=== PATIENT | male | born 1980 | race Caucasian/White ===

== ENCOUNTER 2018-10-21 19:39 | Observation (INO) | payer OTHER ==
[~2018-10-21] VITALS: Ht 170.2 cm; Wt 90.7 kg
[2018-10-21] MEDS ORDERED: NS(*) 0.9% 1000 ML BAG 1,000 ML IV ONE (19:55)
[2018-10-21 20:07] LABS: PLATELET COUNT, AUTOMATED 193 K/uL (150-450)
--- NOTE | 2018-10-21 20:09 | ER Report ---
History and Physical Time Seen By MD: 19:48 HPI/ROS CHIEF COMPLAINT: fall off skateboard, seizure, altered level of consciousness. HISTORY OF PRESENT ILLNESS: This is a 38 year old male. He was brought to the ER by EMS after a fall from a skateboard. He had a helmet on. Witnessed by others, reported seizure activity for about 5 minutes. EMS reported he was only responsive to painful stimuli. Gave Ativan 2mg IV for the seizure which then sto pped. He also had a blood sugar of 60 and was given 1/2 amp of D50. Backboard and cervical collar in place. Unknown history otherwise. Unknown if fall occurred first or seizure. Unknown if seizure history. No obvious injuries on their evaluation other than abrasions. REVIEW OF SYSTEMS: Unable to obtain Allergies: Coded Allergies: No Known Drug Allergies (Verified , 08/23/09) Home Meds Reported Medications Lactobacillus Acidophilus (ACIDOPHILUS) Unknown Strength Capsule, PO PRN, CAPSULE 03/02/18 Ibuprofen (ADVIL) Unknown Strength Tablet, PO PRN 03/02/18 [No Current Meds] No Conflict Check, 0 Refills 09/05/09 Reviewed Nurses Notes: Yes Smoking Status: Never Smoker Constitutional Vital Sign - Last 24 Hours 10/21/18 10/21/18 10/21/18 10/21/18 19:51 19:55 20:03 20:15 Temp 97.9 Pulse 93 91 Resp 16 24 B/P (MAP) 132/82 133/82 (99) 137/79 (98) Pulse Ox 95 94 O2 Delivery Room Air 10/21/18 10/21/18 10/21/18 10/21/18 20:50 21:00 21:15 21:30 Pulse 97 Resp 26 B/P (MAP) 143/95 (111) 129/84 (99) 107/72 (84) Pulse Ox 95 Physical Exam General Appearance: The patient is very sedated. He is snoring. He does open his eyes briefly and look at me when calling his name. Falls asleep quickly after this. Only a few mumbled verbal responses that sound like yes or no to a few questions, mostly without response to verbal. He does respond to some pa inful stimuli. Able to mumble a little when palpating his back on log roll evaluation. Eyes: Pupils are equal, round. Reactive to light. No pallor, injection or icterus. ENT: Mucous membranes are moist. Normal oral mucosa. Posterior oropharynx is difficult to see completely, but appears normal. Normal nasal mucosa. Normal tympanic membranes and canals. Neck: Supple without apparent tenderness. Midline trachea, no swelling. No apparent midline cervical spine pain. Respiratory: Breathing easily and unlabored. Lungs are clear to auscultation. Cardiovascular: Regular rate and rhythm. No murmurs, gallops or rubs. Normal capillary refill and peripheral perfusion/pulses. No edema. Gastrointestinal: Abdomen is soft, no apparent tenderness with palpation. Nondistended. No masses or organomegaly. Normal active bowel sounds. Neurological: As above will open eyes to verbal and some responses to pain. No obvious deficits, but not able to cooperate for full exam. Moving all extremities at this time spontaneously. Skin: Warm and dry. No rashes. Has abrasions on both knees, left elbow, and bilateral hip/low back area. Musculoskeletal: Extremities without apparent tenderness of palpation, sponta neous movement. No apparent pain with passive range of motion. Mumbles a little pain with palpation of the thoracic and lumbar spine, no step-offs noted. DIFFERENTIAL DIAGNOSIS: After history and physical exam, differential diagnosis was considered for trauma in a fall with seizure and altered level of consciousness, although the patient did receive Ativan by EMS. Full lab and imaging evaluation with le-CT scans. Medical Decision Making Data Points Result Diagram: 10/21/18195710/21/181957 Laboratory Hematology Test 10/21/18 19:58 Red Blood Count 5.05 M/uL (4.00-5.60) Mean Corpuscular Volume 88.5 fL (80.0-96.0) Mean Corpuscular Hemoglobin 31.5 pg (26.0-33.0) Mean Corpuscular Hemoglobin Concent 35.6 g/dL (32.0-36.0) Red Cell Distribution Width 13.0 % (11.5-14.5) Mean Platelet Volume 10.0 fL (7.2-11.1) Neutrophils (%) (Auto) 64.7 % (39.4-72.5) Lymphocytes (%) (Auto) 24.9 % (17.6-49.6) Monocytes (%) (Auto) 6.2 % (4.1-12.4) Eosinophils (%) (Auto) 3.6 % (0.4-6.7) Basophils (%) (Auto) 0.6 % (0.3-1.4) Nucleated RBC Relative Count (auto) 0.1 /100WBC Neutrophils # (Auto) 5.0 K/uL (2.0-7.4) Lymphocytes # (Auto) 1.9 K/uL (1.3-3.6) Monocytes # (Auto) 0.5 K/uL (0.3-1.0) Eosinophils # (Auto) 0.3 K/uL (0.0-0.5) Basophils # (Auto) 0.0 K/uL (0.0-0.1) Nucleated RBC Absolute Count (auto) 0.00 K/uL Prothrombin Time 13.0 seconds (12.0-14.4) Prothromb Time International Ratio 0.98 Activated Partial Thromboplast Time 26 seconds (23-35) Sodium Level 139 mmol/L (137-145) Potassium Level 3.4 mmol/L (3.5-5.0) Chloride Level 105 mmol/L (98-107) Carbon Dioxide Level 26 mmol/L (22-30) Blood Urea Nitrogen 11 mg/dl (9-21) Creatinine 1.10 mg/dl (0.66-1.25) Glomerular Filtration Rate Calc > 60.0 Random Glucose 132 mg/dl (75-110) Lactate 3.3 mmol/L (0.7-2.1) Calcium Level 8.3 mg/dl (8.4-10.2) Total Bilirubin 1.5 mg/dl (0.2-1.3) Aspartate Amino Transf (AST/SGOT) 33 U/L (0-35) Alanine Aminotransferase (ALT/SGPT) 59 U/L (0-56) Alkaline Phosphatase 45 U/L (0-126) Total Protein 6.4 g/dl (6.3-8.2) Albumin 3.7 g/dl (3.5-5.0) Amylase Level 56 U/L (0-110) Lipase 194 U/L (23-300) Serum Alcohol < 10 mg/dl Chemistry Test 10/21/18 19:58 White Blood Count 7.7 k/uL (4.5-11.0) Red Blood Count 5.05 M/uL (4.00-5.60) Hemoglobin 15.9 g/dL (14.0-18.0) Hematocrit 44.7 % (42.0-52.0) Mean Corpuscular Volume 88.5 fL (80.0-96.0) Mean Corpuscular Hemoglobin 31.5 pg (26.0-33.0) Mean Corpuscular Hemoglobin Concent 35.6 g/dL (32.0-36.0) Red Cell Distribution Width 13.0 % (11.5-14.5) Platelet Count 193 K/uL (150-450) Mean Platelet Volume 10.0 fL (7.2-11.1) Neutrophils (%) (Auto) 64.7 % (39.4-72.5) Lymphocytes (%) (Auto) 24.9 % (17.6-49.6) Monocytes (%) (Auto) 6.2 % (4.1-12.4) Eosinophils (%) (Auto) 3.6 % (0.4-6.7) Basophils (%) (Auto) 0.6 % (0.3-1.4) Nucleated RBC Relative Count (auto) 0.1 /100WBC Neutrophils # (Auto) 5.0 K/uL (2.0-7.4) Lymphocytes # (Auto) 1.9 K/uL (1.3-3.6) Monocytes # (Auto) 0.5 K/uL (0.3-1.0) Eosinophils # (Auto) 0.3 K/uL (0.0-0.5) Basophils # (Auto) 0.0 K/uL (0.0-0.1) Nucleated RBC Absolute Count (auto) 0.00 K/uL Prothrombin Time 13.0 seconds (12.0-14.4) Prothromb Time International Ratio 0.98 Activated Partial Thromboplast Time 26 seconds (23-35) Glomerular Filtration Rate Calc > 60.0 Lactate 3.3 mmol/L (0.7-2.1) Calcium Level 8.3 mg/dl (8.4-10.2) Total Bilirubin 1.5 mg/dl (0.2-1.3) Aspartate Amino Transf (AST/SGOT) 33 U/L (0-35) Alanine Aminotransferase (ALT/SGPT) 59 U/L (0-56) Alkaline Phosphatase 45 U/L (0-126) Total Protein 6.4 g/dl (6.3-8.2) Albumin 3.7 g/dl (3.5-5.0) Amylase Level 56 U/L (0-110) Lipase 194 U/L (23-300) Serum Alcohol < 10 mg/dl Coagulation Test 10/21/18 19:58 Prothrombin Time 13.0 seconds Prothromb Time International Ratio 0.98 Activated Partial Thromboplast Time 26 seconds Toxicology Test 10/21/18 19:58 Serum Alcohol < 10 mg/dl EKG/Imaging Imaging X-ray: Single view chest and pelvis was obtained. I viewed the images myself on the PACS system. My interpretation of the images is: No acute upper malady noted. The radiologist interpretation had no clinically significant variation from this interpretation. CT obtained: Head and cervical spine without contrast, chest/abdomen/pelvis as well as thoracic and lumbar spine with contrast. Results: No acute abnormalities noted. The study was read by the radiologist and I read the report. I viewed the images myself on the PACS system. ED Course/Re-evaluation Clinical Indication for ER IV: IV Access ED Course IV started by EMS and labs obtained. Patient had imaging done including chest x- ray, pelvis x-ray, and CT scans of the head, cervical spine, and chest/abdomen/pelvis as well as thoracic and lumbar spine. No acute injuries were noted on these images. Labs also were fairly unremarkable. On reevaluation, the patient is now interacting normally although with some repetitive questioning. No further seizures and no neurologic deficits noted other than the signs of concussion. Discussed care with the patient and the family and recommended observation stay tonight. Called and discussed this with Dr. Garcia, who accepted the patient for admission. Tetanus booster given. Decision to Disposition Date: October 21, 2018 Decision to Disposition Time: 23:18 Depart Departure Latest Vital Signs Vital Signs Date Time Temp Pulse Resp B/P (MAP) Pulse Ox O2 Delivery O2 Flow Rate FiO2 10/21/18 21:30 107/72 (84) 10/21/18 21:15 97 26 95 10/21/18 19:51 97.9 Room Air Impression: Primary Impression: Concussion Additional Impressions: Fall Seizure after head injury Condition: Improved Disposition: Admitted from ER Referrals: KARLI HALL PA-C (PCP) Problem Qualifiers Primary Impression: Concussion Encounter type: initial encounter Loss of consciousness presence/duration: with LOC of 30 min or less Qualified Codes: S06.0X1A - Concussion with loss of consciousness of 30 minutes or less, initial encounter Additional Impressions: Fall Encounter type: initial encounter Qualified Codes: W19.XXXA - Unspecified fall, initial encounter CELESTINO RAYGOZA MD October 21, 2018 20:08
[2018-10-21] MEDS ORDERED: IOPAMIDOL 76% 150 ML INFUS BTL 150 ML ONE (20:35)
[2018-10-21 20:37] LABS: INR 0.98
--- NOTE | 2018-10-21 22:27 | RADIOLOGY IMAGING REPORT ---
FACILITY: [facility] [place] PATIENT NAME: Kole Barron : 1980 MR: [id number] V: [id number] EXAM DATE: ORDERING PHYSICIAN: CELESTINO RAYGOZA TECHNOLOGIST: Location: [facility] Patient: Kole Barron : 1980 Visit/Account:[id number] Date of Sevice: 10/21/2018 EXAMINATION: CT Head Without Contrast 10/21/2018 7:55 PM HISTORY: fall, seizure, aloc TECHNIQUE: Contiguous axial images were obtained from the skull base to the vertex without intraven ous contrast. One of the following dose optimization techniques was utilized in the performance of this exam: Autom ated exposure control; adjustment of the mA and/or kV according to the patient's size; or use of an i terative reconstruction technique. Specific details can be referenced in the facility's radiology C T exam operational policy. COMPARISON STUDIES: Additional trauma CTs tonight FINDINGS: Ventricles / sulci / fissures: negative Masses / hemorrhage / midline shift: negative White matter: negative Bedoya-white differentiation: negative Extra-axial spaces: negative Dural venous sinuses / arterial structures: negative Skull base / calvarium: negative Visualized mastoid air cells / paranasal sinuses: Well aerated. Leftward nasal septal deviation. IMPRESSION: Normal head CT. No evidence of acute injury or any mass, acute ischemia or hemorrhage. Report Dictated By: Kole Perez MD at 10/21/2018 9:40 PM Report E-Signed By: Kole Perez MD at 10/21/2018 10:23 PM WSN:[id number]
--- NOTE | 2018-10-21 22:28 | RADIOLOGY IMAGING REPORT ---
FACILITY: [facility] PATIENT NAME: Kole Barron : 1980 MR: [id number] V: [id number] EXAM DATE: ORDERING PHYSICIAN: CELESTINO RAYGOZA TECHNOLOGIST: Location: [facility] Patient: Kole Barron : 1980 Visit/Account:[id number] Date of Sevice: 10/21/2018 EXAMINATION: CT Cervical Spine Without Contrast 10/21/2018 7:55 PM HISTORY: fall, seizure, aloc COMPARISON STUDIES: Additional trauma CTs today TECHNIQUE: Axial images were obtained from the skull base through the upper thoracic spine without I V contrast administration. Coronal and sagittal reformatted images were obtained from the axial [facility] e data. One of the following dose optimization techniques was utilized in the performance of this exam: Autom ated exposure control; adjustment of the mA and/or kV according to the patient's size; or use of an i terative reconstruction technique. Specific details can be referenced in the facility's radiology C T exam operational policy. FINDINGS: Pre-vertebral soft tissues: negative Alignment: negative Vertebral bodies: No acute bony finding. Vascular lucencies in the midst of the C3-C5 vertebral fallon s. Posterior elements: negative Disc Spaces: negative Visualized soft tissues anterior neck: Mild chronic appearing paranasal sinus changes in the maxillar ies bilaterally, greater on the left than the right. Visualized lung / mediastinum: negative IMPRESSION: No acute bony injury of the cervical spine. Report Dictated By: Kole Perez MD at 10/21/2018 10:00 PM Report E-Signed By: Kole Perez MD at 10/21/2018 10:23 PM WSN:[id number]
--- NOTE | 2018-10-21 22:29 | RADIOLOGY IMAGING REPORT ---
FACILITY: [facility] - [place] PATIENT NAME: Kole Barron : 1980 MR: [id number] V: [id number] EXAM DATE: ORDERING PHYSICIAN: CELESTINO RAYGOZA TECHNOLOGIST: Location: [facility] [place] Patient: Kole Barron : 1980 Visit/Account:[id number] Date of Sevice: 10/21/2018 EXAMINATION: CT Chest With Contrast CT Abdomen With Contrast CT Pelvis With Contrast Thoracic spine reconstructions Lumbar spine reconstructions 10/21/2018 7:55 PM HISTORY: fall, seizure, aloc TECHNIQUE: Spiral scan was obtained through the chest, abdomen and pelvis during injection of nonio katie iodinated intravenous contrast. Dedicated thoracic and lumbar spine imaging was also done. Contrast: 75 mL of IV Isovue 370. One of the following dose optimization techniques was utilized in the performance of this exam: Autom ated exposure control; adjustment of the mA and/or kV according to the patient's size; or use of an i terative reconstruction technique. Specific details can be referenced in the facility's radiology C T exam operational policy. COMPARISON STUDIES: Additional CTs of the head and cervical spine tonight. FINDINGS: CHEST: Lungs / pleura: negative Mediastinum / lina: negative Heart / pericardium: negative Vessels: negative Musculoskeletal / Body wall: No acute bony injury. See separate spine sections. Lymph node assessment: negative Lower neck: negative ABDOMEN AND PELVIS: Liver / biliary: negative Pancreas: negative Spleen: Incidental inferomedial accessory splenule behind the tail the pancreas. Adrenal glands: negative Kidneys / retroperitoneum: negative Pelvic structures: negative Bowel / peritoneum / mesenteries: negative Vessels: negative Musculoskeletal / Body wall: No acute bony injury. See separate spine sections. Lymph node assessment: negative Thoracic spine: Mild levoscoliotic curvature with the apex at T2-3. Milder dextroscoliotic curvature with the apex at T6-7. No subluxation. Facet relationships are well-preserved. No compression deformi ty or other acute bony finding. Lumbar spine: Mild levoscoliotic curvature with the apex at L3. There are 5 nonrib-bearing lumbar ashly tebral levels. No compression deformity of the acute bony injury evident. Facet relationships are wel l-preserved. IMPRESSION: 1. No acute traumatic injury of the chest, abdomen, and pelvis. 2. Mild scoliotic spinal curvature in the thoracic and lumbar spine as above. Likely this is chronic although a component may reflect muscular spasm due to pain in the trauma setting. No acute bony inju ry of the thoracic or lumbar spine is demonstrated. Report Dictated By: Kole Perez MD at 10/21/2018 10:04 PM Report E-Signed By: Kole Perez MD at 10/21/2018 10:24 PM WSN:[id number]
--- NOTE | 2018-10-21 22:29 | RADIOLOGY IMAGING REPORT ---
FACILITY: [facility] PATIENT NAME: Kole Barron : 1980 MR: [id number] V: [id number] EXAM DATE: ORDERING PHYSICIAN: CELESTINO RAYGOZA TECHNOLOGIST: Location: [facility] [place] Patient: Kole Barron : 1980 Visit/Account:[id number] Date of Sevice: 10/21/2018 EXAMINATION: CT Chest With Contrast CT Abdomen With Contrast CT Pelvis With Contrast Thoracic spine reconstructions Lumbar spine reconstructions 10/21/2018 7:55 PM HISTORY: fall, seizure, aloc TECHNIQUE: Spiral scan was obtained through the chest, abdomen and pelvis during injection of nonio katie iodinated intravenous contrast. Dedicated thoracic and lumbar spine imaging was also done. Contrast: 75 mL of IV Isovue 370. One of the following dose optimization techniques was utilized in the performance of this exam: Autom ated exposure control; adjustment of the mA and/or kV according to the patient's size; or use of an i terative reconstruction technique. Specific details can be referenced in the facility's radiology C T exam operational policy. COMPARISON STUDIES: Additional CTs of the head and cervical spine tonight. FINDINGS: CHEST: Lungs / pleura: negative Mediastinum / lina: negative Heart / pericardium: negative Vessels: negative Musculoskeletal / Body wall: No acute bony injury. See separate spine sections. Lymph node assessment: negative Lower neck: negative ABDOMEN AND PELVIS: Liver / biliary: negative Pancreas: negative Spleen: Incidental inferomedial accessory splenule behind the tail the pancreas. Adrenal glands: negative Kidneys / retroperitoneum: negative Pelvic structures: negative Bowel / peritoneum / mesenteries: negative Vessels: negative Musculoskeletal / Body wall: No acute bony injury. See separate spine sections. Lymph node assessment: negative Thoracic spine: Mild levoscoliotic curvature with the apex at T2-3. Milder dextroscoliotic curvature with the apex at T6-7. No subluxation. Facet relationships are well-preserved. No compression deformi ty or other acute bony finding. Lumbar spine: Mild levoscoliotic curvature with the apex at L3. There are 5 nonrib-bearing lumbar ashly tebral levels. No compression deformity of the acute bony injury evident. Facet relationships are wel l-preserved. IMPRESSION: 1. No acute traumatic injury of the chest, abdomen, and pelvis. 2. Mild scoliotic spinal curvature in the thoracic and lumbar spine as above. Likely this is chronic although a component may reflect muscular spasm due to pain in the trauma setting. No acute bony inju ry of the thoracic or lumbar spine is demonstrated. Report Dictated By: Kole Perez MD at 10/21/2018 10:04 PM Report E-Signed By: Kole Perez MD at 10/21/2018 10:24 PM WSN:[id number]
--- NOTE | 2018-10-21 22:29 | RADIOLOGY IMAGING REPORT ---
FACILITY: [facility] PATIENT NAME: Kole Barron : 1980 MR: [id number] V: [id number] EXAM DATE: ORDERING PHYSICIAN: CELESTINO RAYGOZA TECHNOLOGIST: Location: [facility] [place] Patient: Kole Barron : 1980 Visit/Account:[id number] Date of Sevice: 10/21/2018 EXAMINATION: CT Chest With Contrast CT Abdomen With Contrast CT Pelvis With Contrast Thoracic spine reconstructions Lumbar spine reconstructions 10/21/2018 7:55 PM HISTORY: fall, seizure, aloc TECHNIQUE: Spiral scan was obtained through the chest, abdomen and pelvis during injection of nonio katie iodinated intravenous contrast. Dedicated thoracic and lumbar spine imaging was also done. Contrast: 75 mL of IV Isovue 370. One of the following dose optimization techniques was utilized in the performance of this exam: Autom ated exposure control; adjustment of the mA and/or kV according to the patient's size; or use of an i terative reconstruction technique. Specific details can be referenced in the facility's radiology C T exam operational policy. COMPARISON STUDIES: Additional CTs of the head and cervical spine tonight. FINDINGS: CHEST: Lungs / pleura: negative Mediastinum / lina: negative Heart / pericardium: negative Vessels: negative Musculoskeletal / Body wall: No acute bony injury. See separate spine sections. Lymph node assessment: negative Lower neck: negative ABDOMEN AND PELVIS: Liver / biliary: negative Pancreas: negative Spleen: Incidental inferomedial accessory splenule behind the tail the pancreas. Adrenal glands: negative Kidneys / retroperitoneum: negative Pelvic structures: negative Bowel / peritoneum / mesenteries: negative Vessels: negative Musculoskeletal / Body wall: No acute bony injury. See separate spine sections. Lymph node assessment: negative Thoracic spine: Mild levoscoliotic curvature with the apex at T2-3. Milder dextroscoliotic curvature with the apex at T6-7. No subluxation. Facet relationships are well-preserved. No compression deformi ty or other acute bony finding. Lumbar spine: Mild levoscoliotic curvature with the apex at L3. There are 5 nonrib-bearing lumbar ashly tebral levels. No compression deformity of the acute bony injury evident. Facet relationships are wel l-preserved. IMPRESSION: 1. No acute traumatic injury of the chest, abdomen, and pelvis. 2. Mild scoliotic spinal curvature in the thoracic and lumbar spine as above. Likely this is chronic although a component may reflect muscular spasm due to pain in the trauma setting. No acute bony inju ry of the thoracic or lumbar spine is demonstrated. Report Dictated By: Kole Perez MD at 10/21/2018 10:04 PM Report E-Signed By: Kole Perez MD at 10/21/2018 10:24 PM WSN:[id number]
--- NOTE | 2018-10-21 22:52 | RADIOLOGY IMAGING REPORT ---
FACILITY: [facility] - [place] PATIENT NAME: Kole Barron : 1980 MR: [id number] V: [id number] EXAM DATE: [id number] ORDERING PHYSICIAN: CELESTINO RAYGOZA TECHNOLOGIST: Location: [facility] [place] Patient: Kole Barron : 1980 Visit/Account:[id number] Date of Sevice: 10/21/2018 INDICATION: fall from skateboard, seizing EXAM DATE: 10/21/2018 7:55 PM COMPARISON: Same-day CT. FINDINGS: Single AP view of the pelvis. Mineralization is normal. No acute alignment abnormality or fracture. S oft tissues are unremarkable. Excreted contrast from prior CT in the ureters and urinary bladder. IMPRESSION: No acute osseous abnormality of the pelvis. Report Dictated By: Denilson Chou MD at 10/21/2018 10:47 PM Report E-Signed By: Denilson Chou MD at 10/21/2018 10:48 PM WSN:[id number]
--- NOTE | 2018-10-21 22:53 | RADIOLOGY IMAGING REPORT ---
FACILITY: [facility] - [place] PATIENT NAME: Kole aBrron : 1980 MR: [id number] V: [id number] EXAM DATE: ORDERING PHYSICIAN: CELESTINO RAYGOZA TECHNOLOGIST: Location: Patient: Kole Barron : 1980 Visit/Account:[id number] Date of Sevice: 10/21/2018 AP CHEST 10/21/2018 7:55 PM. INDICATION: fall from skateboard, seizing COMPARISON: Same-day CT. FINDINGS: Lungs are well-expanded. There is no consolidation. No pleural effusion or pneumothorax. Heart size i s normal. No displaced fracture. IMPRESSION: No acute abnormality. Report Dictated By: Denilson Chou MD at 10/21/2018 10:48 PM Report E-Signed By: Denilson Chou MD at 10/21/2018 10:49 PM WSN:[id number]
[2018-10-21] MEDS ORDERED: DIPHTH/TETANUS/ACEL. PERTUSSIS IM ONLY ONE (23:45)
[2018-10-22] MEDS ORDERED: ACETAMINOPHEN 500 MG TAB ONE (00:23)
[2018-10-22 00:38] VITALS: BP 129/79
[2018-10-22] MEDS ORDERED: ONDANSETRON 4 MG/2 ML VIAL IVP PRN (00:50)
[2018-10-22] MEDS ORDERED: ONDANSETRON 4 MG ODT TABDP SL PRN (00:50)
[2018-10-22] MEDS: ACETAMINOPHEN 500 MG TAB PO PRN ×2 (00:54→10:43)
[2018-10-22 04:16] VITALS: BP 136/64
[2018-10-22 07:12] VITALS: BP 130/84
[2018-10-22 08:58] VITALS: Ht 170.2 cm; Wt 90.7 kg
[2018-10-22 12:32] VITALS: BP 118/74
--- NOTE | 2018-10-22 13:22 | Short(Outpt) Discharge Summary ---
Discharge Summary Reason for Hosp/Final Diag: (1) Concussion Status: Acute Hospital Course & Plan: 10/22/18: Doing much better. No complaints at this time. Wants to go home. Concussion precautions provided. Will d/c to home. Departure Discharge to: Home, Self Care Discharge Instructions Home Meds Reported Medications Lactobacillus Acidophilus (ACIDOPHILUS) Unknown Strength Capsule, PO PRN, CAPSULE 03/02/18 Ibuprofen (ADVIL) Unknown Strength Tablet, PO PRN 03/02/18 [No Current Meds] No Conflict Check, 0 Refills 09/05/09 Follow up Referrals: General Surgery - 10/31/18 @ Surgery, General with HERMELINDA GUPTA MD You have a follow up appointment scheduled with Dr. Gupta on 10/31/18, at 3:30pm. Diet: Regular Activity: As Tolerated Special Instructions: Avoid any activity that puts you at risk for re-injuring your brain, especially in the next [address] you are feeling back to normal. Problem Qualifiers (1) Concussion: Encounter type: initial encounter Loss of consciousness presence/duration: with LOC of 30 min or less Qualified Codes: S06.0X1A - Concussion with loss of consciousness of 30 minutes or less, initial encounter HERMELINDA GUPTA MD October 22, 2018 13:22
--- NOTE | 2018-10-22 13:30 | Gen Surgery History & Physical ---
History of Present Illness Chief Complaint Concussion History of Present Illness 38yo male is brought in to the ER after falling from his skateboard. He doesn't remember what happened. His main complaint is headache that's improving and diz ziness when standing up but this rapidly goes away. No N/V. Initially demonstrated seizure like activity but none since the injury. No double vision, abdominal pain, chest pain, problems breathing. Neck is stiff but no pain. No other complaints today. History Home Meds Reported Medications Lactobacillus Acidophilus (ACIDOPHILUS) Unknown Strength Capsule, PO PRN, CAPSULE 03/02/18 Ibuprofen (ADVIL) Unknown Strength Tablet, PO PRN 03/02/18 [No Current Meds] No Conflict Check, 0 Refills 09/05/09 Allergies: Coded Allergies: No Known Drug Allergies (Verified , 08/23/09) Patient History: FH: Gilbert's disease BROTHER OR SISTER FH: alcoholism MOTHER FH: heart disease MOTHER FH: kidney disease MOTHER FH: multiple myeloma FATHER FH: prostate cancer FATHER FHx: lung disease MOTHER Review of Systems All Systems Reviewed/Normal: Yes, Except as Noted Neurological: Dizziness Exam General Appearance: Alert, Awake, No Acute Distress, Afebrile Neuro: No Gross deficits, Other (CN 2-12 intact, no focal deficits in peripheral nerves.) Eyes: PERRLA ENT: Moist Mucous Membranes, Posterior Pharynx Clear Cardiovascular: Regular Rate and Rhythm Respiratory: Clear to Auscultation GI: Abd Soft and Non-Tender Musculoskeletal: Other (No cervical, thoracic, or lumbar TTP or stepoff/deformity) Extremities: Warm, Perfused Psych: Alert & Oriented X3, Appropriate Mood & Affect Medical Decision Making Data Points Result Diagram: 10/21/18195710/21/181957 Assessment and Plan Problems: (1) Concussion Status: Acute Assessment & Plan: 10/22/18: Admitted for observation. No further evidence of seizures. I have explained concussions to the patient and his in great detail along with their symptoms, duration of symptoms, and treatment. If his symptoms improve and no further seizure activity then will d/c to home later today with outpatient f/u. Condition STable. Time Spent: < 30 min Venous Thromboembolism VTE Risk Physician Assess for VTE Risk: Yes Patient's VTE Risk: Low VTE Diagnostic Test 2 Days Prior to Admit: No Antithrombotics Is Pt On Any Antithrombotics?: No Problem Qualifiers (1) Concussion: Encounter type: initial encounter Loss of consciousness presence/duration: with LOC of 30 min or less Qualified Codes: S06.0X1A - Concussion with loss of consciousness of 30 minutes or less, initial encounter HERMELINDA GUPTA MD October 22, 2018 13:30
== END 2018-10-22 13:16 | disposition home or self-care (01) ==
LOC: ER 19:47 → ICU 23:41
PROVIDERS: ADMIT Surgery; ATTEND Surgery
DX: S06.0X1A Concussion with loss of consciousness of 30 minutes or less, initial encounter (principal); V00.131A Fall from skateboard, initial encounter; R56.9 Unspecified convulsions; R41.82 Altered mental status, unspecified; R42 Dizziness and giddiness
CPT/HCPCS: 36416; 70450; 71045; 71260; 72125; 72129; 72132; 72170; 74177; 80305; 80320; 81001; 82150; 82948; 83605; 83690; 85025; 85610; 85730; 90471; 90715; 96360; 96361; 99284; G0378; J7030; Q9967; 82040; 82247; 82310; 82374; 82435; 82565; 82947; 84075; 84132; 84155; 84295; 84450; 84460; 84520

== ENCOUNTER → 2018-10-21 | Outpatient (CLI) | payer OTHER ==
[~2018-10-21] MED LIST: CIP500 PO; IBUP100T51 PO; LACT1CAP64 PO; METR-1 PO; MIR; MOM PO; NO CURRENT MEDS; ONDA4TAB PO; PER PO; PHE30 PO
[2018-10-22 08:58] VITALS: BMI 31.3
== END ==
LOC: AMB 19:25
PROVIDERS: ATTEND Nurse Practitioner
DX: R55 Syncope and collapse (principal); R41.82 Altered mental status, unspecified; V98.8XXA Other specified transport accidents, initial encounter
CPT/HCPCS: A0425; A0427